=== PATIENT | female | born 1990 | race Caucasian/White ===

== ENCOUNTER 2017-01-06 18:57 | Emergency (ER) | payer OTHER | END 2017-01-06 22:20 | disposition home or self-care (01) | LOC: EDBD 18:57 → D.ER 18:57 | DX: S63.502A Unspecified sprain of left wrist, initial encounter (principal); V09.20XA Pedestrian injured in traffic accident involving unspecified motor vehicles, initial encounter; Y93.55 Activity, bike riding; Y92.410 Unspecified street and highway as the place of occurrence of the external cause; S80.212A Abrasion, left knee, initial encounter; R51 Headache; F17.200 Nicotine dependence, unspecified, uncomplicated ==